=== PATIENT | male | born 1955 | race Caucasian/White ===

== ENCOUNTER 2017-05-13 09:34 | Emergency (ER) | payer BC ==
[2017-05-13] MEDS ORDERED: HYDROcodone/Acetaminophen 10/325 mg Tablet ONE (09:57)
== END 2017-05-13 10:00 | disposition home or self-care (01) ==
LOC: MADERS 09:34
DX: M54.5 Low back pain (principal); F17.210 Nicotine dependence, cigarettes, uncomplicated
CPT/HCPCS: 99283